=== PATIENT | female | born 1985 ===

== ENCOUNTER 2024-11-24 16:05 | Outpatient (CLI) | payer BC, SELFPAY ==
[2024-11-24 16:12] LABS: Abs Immature Grans 0.07 10^3/uL (0.0-0.06); Absolute Basophil Count 0.08 10^3/uL (0.0-0.2); Absolute Lymphocyte Count 2.01 10^3/uL (1.2-3.4); Absolute Monocyte Count 0.66 10^3/uL (0.1-0.8); Absolute Neutrophil Count 8.59 10^3/uL (1.2-6.7); Basophils % 0.7 %; Eosinophils % 0.9 %; HCT 36.4 % (36.0-46.0); HGB 12.3 g/dL (11.2-15.7); Immature Grans % 0.6 %; Lymphocytes % 17.5 %; MCH 31.1 pg (27.0-33.0); MCHC 33.8 % (32.0-36.0); MCV 92 fL (80-95); MPV 8.9 fL (8.0-11.0); Monocytes % 5.7 %; Neutrophils % 74.6 %; Platelet Count 291 10^3/uL (130-400); RBC 3.95 10^6/uL (3.93-5.22); RDW 12.6 % (11.7-14.6); RDW-SD 42.6 fL; WBC 11.51 10^3/uL (4.4-10.8)
[2024-11-25 18:54] LABS: Hepatitis B Surface Ag Negative (Negative)
[2024-11-25 19:25] LABS: Hepatitis C Ab w Rflx HCV PCR Negative (Negative)
[2024-11-25 19:28] LABS: HIV-1/2 Ag & Ab Screen Negative (Negative)
[2024-11-26 11:23] LABS: Rubella IgG Ab (UVM) Positive (See Note); Varicella IgG Antibody Positive (See Note)
[2024-11-27 14:30] LABS: Syphilis IgG w/Reflex Nonreactive (Nonreactive)
== END 2024-11-24 16:06 | disposition home or self-care (01) ==
LOC: LBO 16:06
PROVIDERS: Visit Provider Advanced Practice Midwife
DX: Z34.91 Encounter for supervision of normal pregnancy, unspecified, first trimester (principal)
CPT/HCPCS: 36415; 86787; 86803; 86850; 86900; 86901; 87340; 87389; 85025; 86762; 86780

== ENCOUNTER 2024-12-09 14:17 | Outpatient (REF) | payer BC, SELFPAY ==
[2024-12-10 12:53] LABS: Chlamydia Result Negative (Negative); GC Result Negative (Negative)
== END 2024-12-09 14:18 | disposition home or self-care (01) ==
LOC: LBN 14:17
PROVIDERS: Visit Provider Advanced Practice Midwife
DX: Z34.93 Encounter for supervision of normal pregnancy, unspecified, third trimester (principal); Z3A.29 29 weeks gestation of pregnancy
CPT/HCPCS: 87491; 87591

== ENCOUNTER 2024-12-16 02:33 | Outpatient (CLI) | payer BC, SELFPAY ==
[2024-12-16 10:37] LABS: HCT 37.7 % (36.0-46.0); HGB 12.8 g/dL (11.2-15.7); MCH 30.9 pg (27.0-33.0); MCV 91 fL (80-95); Platelet Count 303 10^3/uL (130-400); RBC 4.14 10^6/uL (3.93-5.22); WBC 11.17 10^3/uL (4.4-10.8)
[2024-12-16 11:01] LABS: Glucose,1 Hr (Glucola) 64 mg/dL (80-140)
== END 2024-12-16 02:34 | disposition home or self-care (01) ==
LOC: LBO 02:33
PROVIDERS: Visit Provider Advanced Practice Midwife
DX: Z34.93 Encounter for supervision of normal pregnancy, unspecified, third trimester (principal)
CPT/HCPCS: 36415; 82950; 85027

== ENCOUNTER 2025-01-21 00:10 | Outpatient (CLI) | payer BC, SELFPAY ==
--- NOTE | 2025-01-21 07:15 | DI.US_ITS ---
Exam(s) US OB NATE WEIGHT EXAM: US OB NATE WEIGHT CLINICAL HISTORY: Smoking in ,Z34.90. TECHNIQUE: Transabdominal obstetrical ultrasound performed. COMPARISON: US US OB 2-3 TRIMESTER from 11/28/2024 FINDINGS:: Number of fetuses: 1 position: CEPHALIC Placental location: POSTERIOR, grade 1-2. No evidence of previa. BIOMETRIC DATA: BPD: 8.76 cm, 35+3 HC: 31.78 cm, 35+5 weeks AC: 30.47 cm, 34+3 weeks FL: 6.81 cm, 35+ 0 weeks EFW: 2521.89 g, 28.3 % Composite Age: 35+1 weeks FELICITAS: 24 February 2025 Heart Rate: 151 bpm Amniotic fluid index: 16.32cm. Visually, amount of fluid is within normal limits. IMPRESSION: size and weight are within the expected range. DATA REPOSITORY:
== END 2025-01-21 00:30 ==
PROVIDERS: Visit Provider Advanced Practice Midwife
DX: Z34.93 Encounter for supervision of normal pregnancy, unspecified, third trimester (principal); Z3A.39 39 weeks gestation of pregnancy
CPT/HCPCS: 76816

== ENCOUNTER 2025-01-28 20:27 | Outpatient (REF) | payer BC, SELFPAY | END 2025-01-28 20:28 | disposition home or self-care (01) | LOC: LBN 20:27 | PROVIDERS: Visit Provider Advanced Practice Midwife | DX: Z34.93 Encounter for supervision of normal pregnancy, unspecified, third trimester (principal) | CPT/HCPCS: 87081 ==

== ENCOUNTER 2025-02-16 00:33 | Outpatient (CLI) | payer BC, SELFPAY ==
--- NOTE | 2025-02-16 07:00 | DI.US_ITS ---
Exam(s) US OB NATE WEIGHT EXAM: US OB NATE WEIGHT CLINICAL HISTORY: pregnacy, size less than dates,o26.849. TECHNIQUE: Transabdominal obstetrical ultrasound performed. COMPARISON: US US OB NATE WEIGHT from 01/21/2025 FINDINGS:: Number of fetuses: 1 position: CEPHALIC Placental location: FUNDAL No evidence of previa. BIOMETRIC DATA: BPD: 8.97cm, 36weeks 2days HC: 33.89cm, 39weeks AC: 33.77cm, 37weeks 5days FL: 7.35cm, 37weeks 4days EFW: 3,265.39g, 7lb 2.93oz, 30.7% Composite Age: 37weeks 5days FELICITAS: 03/04/2025 Heart Rate: 142bpm Amniotic fluid index: 11.56cm. Visually, amount of fluid is within normal limits. IMPRESSION: size is measuring nearly 2 weeks smaller than distention age. weight 31 percentile. DATA REPOSITORY:
== END 2025-02-16 00:53 ==
LOC: DI 00:33
PROVIDERS: Visit Provider Advanced Practice Midwife
DX: O26.843 Uterine size-date discrepancy, third trimester; Z3A.39 39 weeks gestation of pregnancy
CPT/HCPCS: 76816

== ENCOUNTER 2025-02-23 17:49 | Inpatient (IN) | payer BC, SELFPAY ==
--- NOTE | 2025-02-23 20:37 | W.PM.OBHPL1 ---
Date of service: 02/23/25 Time of Service: 20:37 Assessment and Plan Assessment and plan (1) : Status: Acute (2) Tobacco dependence: Status: Acute (3) Late care: Status: Acute (4) Advanced maternal age (AMA) in : Status: Acute (5) Fundal height low for dates: Status: Acute (6) Amniotic fluid leaking: Start date: 02/23/25 Start time: 17:30 Status: Acute Assessment and plan: #. 39-year-old at 40+2 here with PROM, not in labor. #. Admit to L&D, SLPIV, T&S. #. Global: GBS+ status requiring initiation of Penicillin. PCN ordered. Rh+, Posterior placenta. #. Labor: Reviewed management options including risks and benefits for: resting through the night to await onset of spontaneous labor, q 4 HR buccal Miso overnight for cervical ripening vs initiation of Pitocin to promote stronger contractions, which has good evidence to support its use in the setting of PROM. Reviewed with patient that if labor has not started by tomorrow morning, I recommend more active management. Patient will discuss with her partner, Gabriel. She will most likely will want to rest for a portion of the night. #. Fetus: Cat 1. Plan IA while awaiting labor. #. Pain: No pain at this time. Plans unmedicated . #. Recommended awaiting to do initial cervical exam until the information it would provide would be helpful for decision making. OB-HPI Labor/Delivery History of Present Illness Reason for Visit: Amiotic Fluid Leaking Chief Complaint: Suspected Rupture of Membranes , Associated Signs and Symptoms of Suspected ROM: Leaking of fluid. FELICITAS Calculator Estimated Delivery Date Method Current WG Current Estimate 02/21/25 Ultrasound #1 40w 2d Other Estimates 03/15/25 LMP (Uncertain) 37w 1d Comments: Tamika is a 39-year-old at 40+2 by 27-week ultrasound here with PROM. She reports LOF around 17:30 and has continued to leak fluid since then. Denies VB or significant contractions. Reports periodic tightening in her upper abdomen. She is her with her partner, Gabriel. She is amenable to starting IV antibiotics for GBS. She is otherwise feeling well, hopes for low-intervention labor and . History of Present Expected Delivery Route/Plan - CNM FOB- Gabriel Hayes (2 children from previous relationship, ages 8 and 10 1/2 custody) BG Hopes for low intervention experience GBS POSITIVE, PCN prophylaxis recommended in labor Pt's mom Odalys is likely support, FOB is on a ship until 1 wk before FELICITAS (02/18) Specific Issues/Plan 1. Advanced maternal care- declined level 2, Declined panorama, anatomy scan scheduled at [facility] 11/28/24=nml, change FELICITAS to 02/21/25 2. late entry to care- pos. PT 05/2024 3. Tobacco use - counselled, trying to cut down. Smoking up to a few cigs/day & using Nicotine patches @ 32 weeks. 3a. 35 week growth US: 28th percentile with NATE 16, cephalic presentation 4. Pre-eclampsia risk: ASA recommended daily, pt not taking. 5. US dating in 3rd trimester not consistent with believed conception date after 06/11. 5a. Growth scan 02/16: EFW 31st percentile using 02/21 FELICITAS (by 27 wk scan), NATE 11, cephalic Assessment: History Reviewed & Current Informed Consent Informed Consent: Augmentation of Labor, Induction of Labor and Risk,Benefits,Alternatives Discussed Review of Systems All systems reviewed & are unremarkable except as noted in HPI and below Constitutional Constitutional: Reports as per HPI PFSH All Active Problems (Updated 02/23/25 @ 20:50 by Alexandra Mclain CNM) Amniotic fluid leaking (Acute) Fundal height low for dates (Acute) Tobacco dependence (Acute) (Acute) Late care (Acute) Advanced maternal age (AMA) in (Acute) Medical History (Updated 02/23/25 @ 20:50 by Alexandra Mclain CNM) Head injury due to trauma loss of consciousness and blood loss due to laceration Surgical History (Updated 11/24/24 @ 17:14 by Daniela Hernandez) History of ankle surgery Family History (Updated 11/24/24 @ 14:49 by Daniela Hernandez) Mother delivery due to DECLAN Father No problems noted. Brother No problems noted. Social History Smoking/Tobacco Use Status: Current-Occasional Smoking risk assessment performed?: Yes History History 2 Para 0 Hx # Term Pregnancies 0 Multiple births 0 Hx # Pregnancies 0 Ectopic pregnancies 0 AB induced 1 Hx Number of Living Children 0 AB spontaneous 0 Meds Allergies and Home Medications Allergies Allergy/AdvReac Type Severity Reaction Status Date / Time vegetable oil Allergy Mild Itching Verified 02/18/25 10:30 Home Medications ?Medication ?Instructions ?Recorded ?Confirmed ?Type vits no.126-ferrous fum 1 tab PO DAILY 11/24/24 02/18/25 History 28 mg iron-folic acid 800 mcg tablet (Classic ) magnesium gluconate 12.5 mg See Rx Instructions PO TID 12/24/24 02/18/25 History magnesium (250 mg) tablet Exam Constitutional Constitutional: no acute distress Detailed Labor and Delivery Exam Martinez Score: Cervical Points Exam 0 1 2 3 Dilation Closed 1-2cm 3-4 cm 5-6cm Effacement 0-30% 40-50% 60-70% 80% Consistency Firm Medium Soft Station -3 -2 -1,0 +1,+2 Position Posterior Mid Anterior Amniotic Membrane Status: Ruptured Rupture Method: Spontaneous Amniotic Fluid: Clear Nitrazine: Positive Contraction Frequency(min): Irritable Contraction Intensity: Mild Fetus A Heart Rate Baseline: 135 Monitor Accelerations: 15 X 15 Monitor Decelerations: None Variability: Moderate (6-25 BPM) Presentation: Cephalic Categories: Category I Est. Weight: 6 lb Date of Membrane Rupture: 02/23/25 Time of Membrane Rupture: 17:30 HEENT Exam HEENT Exam: Normal Respiratory Exam Respiratory Exam: Normal Cardiovascular Exam Cardiovascular Exam: Normal Abdominal Exam Abdominal Exam: Normal (Gravid, S<D, EFW 6 lbs) Results Results Group Beta Strep: Positive Blood Type: O+ Rubella Status: Immune Varicella Immunity: Immune Risk Assessment Risk for Shoulder Dystocia Historical/Initial OB: NEGATIVE FOR: Pelvic Abnormality, Pre- BMI>30, Previous Shoulder Dystocia or Previous Macrosomia Risk for Pre-Eclampsia Yes, if one or more: NEGATIVE FOR: Hx Pre-E/Gest HTN, Chronic HTN, Pre-gestational DM, Renal Disease, Systemic Lupus or APA Syndrome Yes, if 2 or more: POSITIVE FOR: Nulliparity and Age>= 35 yrs; NEGATIVE FOR: >10yr btwn pregnancies, BMI>30, ethinicty, Mother/Sister w/ Pre-E or Previous IUGR Risk for Post- Hemorrhage Initial: NEGATIVE FOR: Previous PPH, Known Clotting Deficiency, Grand Multiparity or Anticoagulation Risks Reviewed Risks Reviewed Upon Admission: Yes
[2025-02-23 20:40] VITALS: BP 130/69; PULSE 89
[2025-02-23 20:43] VITALS: BP 130/69; PULSE 89; RESP 16; TEMP 36.8; O2SAT 98
[2025-02-23 21:05] LABS: HCT 34.6 % (36.0-46.0); HGB 12.0 g/dL (11.2-15.7); MCH 30.5 pg (27.0-33.0); MCHC 34.7 % (32.0-36.0); MCV 88 fL (80-95); MPV 8.9 fL (8.0-11.0); Platelet Count 299 10^3/uL (130-400); RBC 3.93 10^6/uL (3.93-5.22); RDW 13.2 % (11.7-14.6); RDW-SD 43.4 fL; WBC 11.61 10^3/uL (4.4-10.8)
[2025-02-23] MEDS: Normal Saline Flush 10 ML SYR IVP (21:40)
[2025-02-23] MEDS: Penicillin G POT. 5,000,000 UNITS in Normal Saline 100 ML 200 UNITS IVPB (21:53)
[2025-02-24] VITALS (94 sets, daily range): BP systolic 106–144; BP diastolic 64–91; PULSE 0–104; TEMP 36.4–36.9; O2SAT 97
[2025-02-24] MEDS: Penicillin G POT. 3,000,000 UNITS in Normal Saline 50 ML 100 UNITS IVPB ×4 (02:30→14:20)
--- NOTE | 2025-02-24 07:26 | W.PM.OBNL1 ---
Date of service: 02/24/25 Time of Service: 07:26 Informed Consent Informed Consent: Augmentation of Labor and Risk,Benefits,Alternatives Discussed Pelvic Exam Dilation: 1 Effacement (%): 90 station: 0 Cervix Position: mid Consistency: medium Vaginal Exam Presentation: Cephalic Comments: Clear amniotic fluid leaking Contractions Monitor Mode: None (Per pt report) Contraction Frequency(min): 10 Intensity: Mild Fetus A Monitor: Doppler Heart Rate Baseline: 135 Presentation: Cephalic FHR Rhythm: Regular Characteristics: Normal Decelerations: None Recurrence: Intermittent Amniotic Membrane Status: Ruptured Assessment and Plan Assessment and plan (1) Amniotic fluid leaking: Status: Acute Assessment and plan: - 39-year-old at 40+3 with PROM x 14 hours, not in labor - SVE , leaking clear fluid - Labor: Discussed findings of exam and the recommendation to augment her labor with the use of Pitocin given that her cervix is favorable, PROM x 14 hours, and promote labor while her energy level is high. Reviewed risks/benefits of Pitocin and how Pitocin is up-titrated. Patient will order some breakfast and let RN know when she is ready to initiate. - Fetus: Reassuring by IA. Will initiate cEFM with Pitocin. - Pain: Not in pain, coping well. Planning unmedicated at this point. - Tobacco Dependence: Will inquire with patient as to whether she would like a Nicotine patch while an inpatient. - Anticipate later today. (2) Advanced maternal age (AMA) in : Status: Acute (3) Tobacco dependence: Status: Acute Objective Abnormal lab results 02/23/25 Range/Units 20:50 WBC 11.61 H (4.4-10.8) 10^3/uL Hct 34.6 L (36.0-46.0) % Temp Pulse Resp BP Pulse Ox 97.9 F 67 16 121/80 97 02/24/25 06:30 02/24/25 07:25 02/23/25 20:43 02/24/25 07:24 02/24/25 07:25 Laboratory Results WBC 11.61 10^3/uL (4.4-10.8) H 02/23/25 20:50 RBC 3.93 10^6/uL (3.93-5.22) 02/23/25 20:50 Hgb 12.0 g/dL (11.2-15.7) 02/23/25 20:50 Hct 34.6 % (36.0-46.0) L 02/23/25 20:50 MCV 88 fL (80-95) 02/23/25 20:50 MCH 30.5 pg (27.0-33.0) 02/23/25 20:50 MCHC 34.7 % (32.0-36.0) 02/23/25 20:50 RDW 13.2 % (11.7-14.6) 02/23/25 20:50 Plt Count 299 10^3/uL (130-400) 02/23/25 20:50 MPV 8.9 fL (8.0-11.0) 02/23/25 20:50 ABO/Rh O Positive 02/23/25 20:50 Antibody Screen NEGATIVE 02/23/25 20:50 Vital Signs Reviewed: Yes Objective Narrative Objective Narrative: O: NAD, resting comfortably in bed, VSS IA q 2 hours overnight: Baseline 135, no decels Subjective Interval history since last seen: Tamika has been able to rest overnight. Noticed that contractions having picked up more since 4 a.m. Feeling some more lower abdominal cramping approximately every 10 minutes, which have not intensified. She is amenable to a cervical exam. Interventions Augmentation , Pitocin rate (mU/min): 2 Results Hemoglobin/Hematocrit: Hgb 12.0 g/dL (11.2-15.7) 02/23/25 20:50 Hct 34.6 % (36.0-46.0) L 02/23/25 20:50 Abnormal Lab Findings: Abnormal Labs 02/23/25 20:50 WBC 11.61 H Hct 34.6 L
[2025-02-24] MEDS: Oxytocin/Normal Saline 30 UNIT/500 ML BAG 2 UNITS IV (09:45)
--- NOTE | 2025-02-24 11:45 | W.PM.OBNL1 ---
Date of service: 02/24/25 Time of Service: 11:45 Informed Consent Informed Consent: Augmentation of Labor and Risk,Benefits,Alternatives Discussed Pelvic Exam Comments: Deferred Contractions Monitor Mode: External Contraction Frequency(min): 2-4 Contraction Duration(sec): 30-45 Intensity: Mild/Moderate Fetus A Monitor: External (US) Heart Rate Baseline: 140 Presentation: Cephalic Variability: Moderate (6-25 BPM) Categories: Category I FHR Rhythm: Regular Characteristics: Normal Accelerations: Absent Decelerations: None Amniotic Membrane Status: Ruptured Assessment and Plan Assessment and plan (1) Amniotic fluid leaking: Status: Acute Assessment and plan: - 39-year-old here with PROM x 19 hours. - Labor: Appears to be progressing with augmentation of labor with Pitocin titration starting at 09:45 this morning, now with more painful contractions. Plan next SVE for 4 hours from onset of stronger contractions. - Pain: Coping well with contractions. FOB Rich supportive at bedside. - Fetus: Cat 1. Continue cEFM. - GBS+: Adequate PCN ppx per protocol. - Nicotine Dependence: Patient typically uses 21 mg patch and states she applied one at 17:30 on 02/22 prior to presenting to L&D. 21 mg TD patch ordered q 24 hours at 17:30 p.m. - Anticipate later today/early evening. Objective Abnormal lab results 02/23/25 Range/Units 20:50 WBC 11.61 H (4.4-10.8) 10^3/uL Hct 34.6 L (36.0-46.0) % Temp Pulse Resp BP Pulse Ox 98.4 F 55 L 16 133/80 97 02/24/25 10:30 02/24/25 11:24 02/23/25 20:43 02/24/25 11:24 02/24/25 07:25 Laboratory Results WBC 11.61 10^3/uL (4.4-10.8) H 02/23/25 20:50 RBC 3.93 10^6/uL (3.93-5.22) 02/23/25 20:50 Hgb 12.0 g/dL (11.2-15.7) 02/23/25 20:50 Hct 34.6 % (36.0-46.0) L 02/23/25 20:50 MCV 88 fL (80-95) 02/23/25 20:50 MCH 30.5 pg (27.0-33.0) 02/23/25 20:50 MCHC 34.7 % (32.0-36.0) 02/23/25 20:50 RDW 13.2 % (11.7-14.6) 02/23/25 20:50 Plt Count 299 10^3/uL (130-400) 02/23/25 20:50 MPV 8.9 fL (8.0-11.0) 02/23/25 20:50 ABO/Rh O Positive 02/23/25 20:50 Antibody Screen NEGATIVE 02/23/25 20:50 Objective Narrative Objective Narrative: O: Breathing through contractions, notably more uncomfortable FHTs: Baseline 140, Moderate variability, No Accels, No decels. Cat 1. [place]: Q 2-4 mins, Pitocin at 6 mU/min. Leaking clear amniotic fluid. EFW by Julio's 6 lbs. Subjective Interval history since last seen: Tamika is feeling her contractions more strongly across her entire low abdomen now. Having some more vaginal discharge as well. Results Hemoglobin/Hematocrit: Hgb 12.0 g/dL (11.2-15.7) 02/23/25 20:50 Hct 34.6 % (36.0-46.0) L 02/23/25 20:50 Abnormal Lab Findings: Abnormal Labs 02/23/25 20:50 WBC 11.61 H Hct 34.6 L
[2025-02-24] MEDS: Oxytocin/Normal Saline 30 UNIT/500 ML BAG 95 UNITS IV (16:30)
--- NOTE | 2025-02-24 17:42 | W.OBDELIVERY ---
Date of service: 02/24/25 Time of Service: 17:42 OB Labor/ Delivery Information Baby A Delivery Delivery Method: Spontaneaous Presentation: Cephalic Cephalic Position: Vertex Vertex Position: Right Occipital Anterior Cord Description-Baby A: 3 Vessels and Nuchal Cord (x2) Amniotic Fluid: Clear Quantitative Blood Loss: 400 mL Delivery Outcome: Liveborn Transferred: Remains with Mother Providers Nurse [employer] Technician: Alexandra Mclain Nurse: Felicita Macedo Nurse: Danielle Duncan Labor/Delivery Information Number of Babies in Womb: 1 Steroids Given: None Reason Steroids Not Administered: N/A Group Beta Strep: Positive Antibiotics Administered: Yes Rubella Status: Immune Blood Type: O+ Varicella Immunity: Immune Maternal Complications: Premature Rupture of Membranes Shoulder Dystocia: No Note: Tamika is a 39-year-old G3 now P1021 at 40+3 who presented with PROM on 02/23 and with GBS+ status. She received Penicillin prophylaxis and rested overnight while awaiting spontaneous labor. In the morning, she was not in labor and her cervix was 1/90/0 at which time Pitocin was initiated. She progressed well through latent and active stages of labor with an overall Cat 1 FHR tracing, using her own inner resources and Nitrous Oxide. 2nd stage notable for Cat 2 tracing with variables during contractions, however with recovery to baseline in between contractions. Tamika pushed effectively to achieve the delivery of a viable female with APGARS of 8/9, weight pending. Nuchal x 2 reduced at the perineum. Shoulders delivered easily. No meconium. The was placed on maternal chest, and purposeful delayed cord clamping was performed until it stopped pulsing and the cord was clamped x 2 and cut by the CNM. The placenta delivery easily with gentle cord traction and maternal effort. Placenta appeared complete with a 3VC. Fundus was firm with Pitocin and massage. The vagina and perineum were inspected. 2nd degree laceration repaired in the usual fashion. Left periurethral laceration repaired with 2 interrupted sutures. QBL 400 mL. Baby and mother stable and remained together to recover. Stages of Labor Onset of Labor Date: 02/23/25 Onset of Labor Time: 17:30 Complete Dilatation Date: 02/24/25 ROM Baby A: 02/23/25 ROM Baby A: 17:30 ROM Total Time- Baby A: [id number] Infant Delivery Date-Baby A: 02/24/25 Infant Delivery Time-Baby A: 16:27 Placenta Delivery Date-Baby A: 02/24/25 Placenta Delivery Time-Baby A: 16:33 Labor-Stage 3 Duration: 6 minutes Total Length of Labor-Baby A: 22 hours and 57 minutes Placenta Status: Delivered Baby A Infant Gender: Female Gestational Status: Term (39-41.6 wks) Gestational Age in Weeks/Days: 40 Weeks and 3 Days Score-1 Minute Interval(Baby A) Heart Rate-1 minute: 100 BPM or Greater Respiratory Effort- 1 minute: Spontaneous/Strong Cry Muscle Tone-1 minute: Active Movement Reflex Response-1 minute: Minimal Response Color-1 minute: Bluish Hands or Feet Total Score-1 minute: 8 Score-5 Minute Interval(Baby A) Heart Rate- 5 minute: 100 BPM or Greater Respiratory Effort-5 minute: Spontaneous/Strong Cry Muscle Tone-5 minute: Active Movement Reflex Response-5 minute: Prompt Response Color-5 minute: Bluish Hands or Feet Total Score- 5 minute: 9
[2025-02-24] MEDS: Acetaminophen 325 MG TAB 650 MG PO (21:26)
[2025-02-24] MEDS: Ibuprofen 600 MG TAB PO (21:26)
[2025-02-25] MEDS: Ibuprofen 600 MG TAB PO ×2 (06:03→14:45)
[2025-02-25] MEDS: Acetaminophen 325 MG TAB 650 MG PO ×2 (06:03→14:45)
[2025-02-25 06:04] VITALS: BP 114/74; PULSE 67; TEMP 36.7
[2025-02-25 08:33] VITALS: BP 122/81; PULSE 63; RESP 18; TEMP 36.9; O2SAT 98
--- NOTE | 2025-02-25 12:34 | W.PM.OBDISCH ---
Date of service: 02/25/25 Time of Service: 12:34 DS: Diagnosis Discharge Diagnosis (1) Term of female : Status: Acute Asessment and Plan: Caring for baby independently. Pain is managed well with oral analgesics. Voiding without difficulty. well. A - stable mother and baby , Post day 1 P - Discharge to home today . Routine post instructions. [facility] up at [facility] Discharge Plan Disposition Patient Disposition: Home Condition: Good Discharge Details Reason For Visit: Amiotic Fluid Leaking Admit Date/Time: 02/23/25 20:32 Admit Provider: Marie Blake Attending Provider: Alexandra Mclain Primary Care Provider: Unknown,Unknown Home Meds and New Rx's Prescriptions: No Action magnesium gluconate 12.5 mg magne- sium (250 mg) tablet See Rx Instructions PO TID Rx Instructions: 250 mg 1capsule orally three times a day; Classic 28 mg iron- 800 mcg tablet 1 tab PO DAILY Discharge Instructions Stand Alone Forms: BC Instructions, BC Post Vaginal Deliver Activity:: Activity as Tolerated Equipment/Supplies:: No Equipment Needed Diet:: As Tolerated Discharge Orders Discharge Orders: Discharge Order (Routine); Ordered 02/25/25 Ordered By: Marie Blake OB:DS Summary Summary Vaginal Delivery Method: Spontaneaous Episiotomy Description: Midline Laceration Description: Perineal Laceration Extension: Second Degree Contraception Discussed Contraception Discussed: No, [place] Infant Gender-Baby A: Female weight: 6 lb 10.88 oz Status at Discharge Functional status at discharge: independent ambulation Overall status at discharge: patient is back to baseline Mental Status: mental status grossly normal Speech and Movement: speech and movement normal Mood: congruent mood Affect: normal affect Exam Physical Exam Vital signs: Temp Pulse Resp BP Pulse Ox 98.4 F 63 18 122/81 98 02/25/25 08:33 02/25/25 08:33 02/25/25 08:33 02/25/25 08:33 02/25/25 08:33 Vital Signs Reviewed: Yes Constitutional Constitutional: no acute distress HEENT Exam HEENT Exam: Normal Respiratory Exam Respiratory Exam: Normal Cardiovascular Exam Cardiovascular Exam: Normal Fundal Exam Fundus: Below Umbilicus and Firm Rectal Exam Rectal Exam: Normal Extremities Exam Extremity Exam: Normal Back/Spine/Pelvis Exam Back Exam: Normal Skin Exam Skin Exam: Normal Psychiatric Exam Psychiatric Exam: Normal PFSH All Active Problems (Updated 02/25/25 @ 12:33 by Marie Blake CNM) Term of female (Acute) Tobacco dependence (Acute) Medical History (Updated 02/25/25 @ 12:33 by Marie Blake CNM) Head injury due to trauma loss of consciousness and blood loss due to laceration Surgical History (Updated 11/24/24 @ 17:14 by Daniela Hernandez) History of ankle surgery Family History (Updated 11/24/24 @ 14:49 by Daniela Hernandez) Mother delivery due to DECLAN Father No problems noted. Brother No problems noted. Social History Smoking/Tobacco Use Status: Current-Occasional Smoking risk assessment performed?: Yes Housing: house History History 2 Para 0 Hx # Term Pregnancies 0 Multiple births 0 Hx # Pregnancies 0 Ectopic pregnancies 0 AB induced 1 Hx Number of Living Children 0 AB spontaneous 0 DS: Data Vitals/I&O Vitals and I&O: Vital Signs Temperature 98.4 F 02/25/25 08:33 Temperature Source Oral 02/25/25 08:33 Pulse 63 02/25/25 08:33 Pulse Rhythm Regular 02/25/25 08:33 Respiratory Rate 18 02/25/25 08:33 Respiratory Depth Normal 02/23/25 23:15 Blood Pressure 122/81 02/25/25 08:33 Blood Pressure Mean 94 02/25/25 08:33 Pulse Oximetry 98 02/25/25 08:33 Oxygen Delivery Method Room Air 02/23/25 20:43 Oxygen Flow Rate 0 02/23/25 20:43 Pain Level 3 02/25/25 06:03 Intake & Output 02/24/25 02/25/25 02/25/25 23:59 11:59 23:59 Intake Total 63.2 / 316.2 Output Total 930 / 930 2500 / 2500 Balance -866.8 / -613.8 -2500 / -2500 Intake: IV 63.2 / 316.2 Output: Urine 900 / 900 2500 / 2500 Blood Other: Urine Color Yellow Yellow Urine Appearance Clear Clear Urine Odor None None
== END 2025-02-25 17:30 | disposition home or self-care (01) | DRG 807 ==
PROVIDERS: Admitting Provider Advanced Practice Midwife; Visit Provider Advanced Practice Midwife
DX: O26.843 Uterine size-date discrepancy, third trimester (principal); Z37.0 Single live birth; Z3A.40 40 weeks gestation of pregnancy; O42.92 Full-term premature rupture of membranes, unspecified as to length of time between rupture and onset of labor; O99.824 Streptococcus B carrier state complicating childbirth; O99.334 Smoking (tobacco) complicating childbirth; F17.210 Nicotine dependence, cigarettes, uncomplicated; O69.81X0 Labor and delivery complicated by cord around neck, without compression, not applicable or unspecified; O70.1 Second degree perineal laceration during delivery
CPT/HCPCS: 85027; 86850; 86900; 86901; J2540

== ENCOUNTER 2025-05-11 15:52 | Outpatient (REF) | payer BC, SELFPAY ==
--- NOTE | 2025-05-11 13:35 | PAPFT_PTH ---
PATIENT: Tamika Gunderson LOC: [facility] U#:[id number] AGE/SX: 39/F ROOM: RE05/11/[address]: Alexandra Mclain : 1985 BED: DIS: 05/11/2025 SPEC #: [id number] RECD: 05/11/25 17:07 STATUS: LUCIANO MAGALLANES #: [id number] CATALINA: 05/11/25 13:[address]: Alexandra Mclain DEPT: [facility] Cytology RECD BY: Ange Lincoln ENTERED: 05/11/25 17:07 SP TYPE: PAPFT OTHR DR: Unknown,Unknown Tissues: 1 - CX/ENDOCX FOR PAP SMEARS Procedures: PAP THIN PREP/[facility] Screening HPV DNA PROBE Comments: [id number] (HPV 16 & 18/45)
== END 2025-05-11 15:53 | disposition home or self-care (01) ==
LOC: LBN 15:52
PROVIDERS: Visit Provider Advanced Practice Midwife
DX: Z12.4 Encounter for screening for malignant neoplasm of cervix (principal)
CPT/HCPCS: 88142; 87624